=== PATIENT | male | born 1960 | race Caucasian/White ===

== ENCOUNTER 2024-05-06 19:43 | Inpatient (IN) | payer OTHER ==
[2024-05-06 21:14] VITALS: BMI 31.8
[2024-05-06] MEDS ORDERED: LOPERAMIDE HCL 2 MG CAPSULE PO PRN (21:20)
[2024-05-06] MEDS ORDERED: IBUPROFEN 400 MG TABLET (FP) PO PRN (21:20)
[2024-05-06] MEDS ORDERED: NALOXONE (NARCAN) HCL 4 MG/0.1 ML SPRAY NS PRN (21:20)
[2024-05-06] MEDS ORDERED: BENZOCAINE/MENTHOL (CHLORASEPTIC ) LOZENGE MM PRN (21:20)
[2024-05-06] MEDS ORDERED: POLYETHYLENE GLYCOL (HEALTHYLAX) 3350 17 GM PACKET PO PRN (21:20)
[2024-05-06] MEDS ORDERED: ACETAMINOPHEN 325 MG TABLET (FP) PO PRN (21:20)
[2024-05-06] MEDS ORDERED: MAGNESIUM HYDROX 2400MG/30ML ORAL SUSPENSION 30 ML CUP PO PRN (21:20)
[2024-05-06] MEDS ORDERED: NICOTINE POLACRILEX 2 MG GUM BUC PRN (21:20)
[2024-05-06] MEDS ORDERED: MAG HYDROX/AL HYDROX/SIMETH 30 ML UNIT-DOSE CUP PO PRN (21:20)
[2024-05-06] MEDS ORDERED: NICOTINE POLACRILEX 2 MG LOZENGE BC PRN (21:20)
[2024-05-06] MEDS ORDERED: P-EPHED 60MG/TRIPROLIDI 2.5MG TABLET PO PRN (21:20)
[2024-05-06] MEDS ORDERED: BISMUTH SUBSALICYLATE 524 MG/30 ML PO PRN (21:20)
[2024-05-06] MEDS ORDERED: ONDANSETRON *ODT* 4 MG TABLET SL PRN (21:20)
[2024-05-06] MEDS ORDERED: TETRAHYDROZOLINE HCL EYE DROPS OU PRN (21:22)
[2024-05-06] MEDS: METOPROLOL TARTRATE 25 MG TABLET (FP) PO ONE (22:00)
[2024-05-06] MEDS ORDERED: METOPROLOL TARTRATE 25 MG TABLET (FP) ONE (22:44)
[2024-05-06] MEDS ORDERED: MELATONIN 5 MG TABLETS ONE (22:44)
[2024-05-06] MEDS ORDERED: diazePAM 5 MG TABLET ONE (22:44)
[2024-05-06] MEDS: THIAMINE 100 MG TABLET PO SCH (22:52)
[2024-05-06] MEDS: MELATONIN 5 MG TABLETS PO SCH (22:52)
[2024-05-06] MEDS: diazePAM 5 MG TABLET PO SCH (22:52)
[2024-05-06] MEDS: ALBUTEROL SO4 2.5/IPRATROPIUM 0.5 INH SOL 3 ML VIAL.NEB. NEB SCH (23:33)
[2024-05-07] MEDS: BENZONATATE 200 MG CAPSULE PO PRN (05:28)
[2024-05-07] MEDS: PRENATAL VITAMINS W/ FOLIC ACID TABLET (FP) PO SCH (10:14)
[2024-05-07] MEDS: METOPROLOL TARTRATE 25 MG TABLET (FP) PO SCH (10:15)
[2024-05-07 11:48] LABS: POTASSIUM 4.5 mmol/L (3.5-5.1)
[2024-05-07 12:06] LABS: CALCIUM 9.2 mg/dL (8.5-10.1)
[2024-05-07 12:07] LABS: ALBUMIN 3.3 g/dl (3.4-5.0); BLOOD UREA NITROGEN 7.9 mg/dL (7-18)
[2024-05-07 12:10] LABS: CREATININE 0.9 mg/dL (0.55-1.3)
[2024-05-07 12:13] LABS: BILIRUBIN,TOTAL 0.9 mg/dL (0.2-1)
[2024-05-07 13:37] LABS: HEMATOCRIT 37.2 % (40.1-51.0); HEMOGLOBIN 12.8 g/dL (13.7-17.5); MCHC 34.4 g/dl (32.3-36.5); MEAN CELL VOLUME 91.4 fl (79.0-92.2); MEAN PLT VOLUME 11.1 fl (9.4-12.4); PLATELET COUNT 96 x10^3/uL (163-337); RDW 14.1 % (12.2-16.4)
[2024-05-07] MEDS: guaiFENesin 600 MG TABLET.ER (FP) PO PRN (16:35)
[2024-05-07] MEDS: IBUPROFEN 600 MG TABLET (FP) PO PRN (22:49)
[2024-05-08] MEDS: diazePAM 5 MG TABLET PO SCH (05:49)
[2024-05-08] MEDS: diazePAM 5 MG TABLET PO PRN (09:31)
[2024-05-09] MEDS: diazePAM 5 MG TABLET PO SCH (05:49)
[2024-05-09] MEDS ORDERED: BENZONATATE 200 MG CAPSULE PO PRN (10:34)
[2024-05-09] MEDS: guaiFENesin 600 MG TABLET.ER (FP) PO SCH (11:03)
[2024-05-09] MEDS: FLUTICASONE/UMECLIDIN/VILANTER(200-62.5-25 TRELEGY ELLIPTA) INAHLER IH SCH (12:09)
[2024-05-09] MEDS: ALBUTEROL SO4 HFA INHALER IH PRN (12:09)
[2024-05-09] MEDS: guaiFENesin 200 MG/10 ML 10 ML UNIT-DOSE CUPS PO PRN (22:32)
[2024-05-10] MEDS: diazePAM 5 MG TABLET PO ONE (05:30)
[2024-05-10] MEDS: hydrOXYzine PAMOATE 25 MG CAPSULE (FP) PO PRN (10:20)
[2024-05-10 11:24] VITALS: RESP 17
[2024-05-10 13:30] VITALS: BP 127/92; PULSE 60; TEMP 96.9
== END 2024-05-10 14:12 | disposition other institution (70) | DRG 897 ==
LOC: YASAS 19:43 → Y3N 22:27
PROVIDERS: ADMIT Allergy & Immunology; ATTEND Allergy & Immunology
PROC: HZ2ZZZZ Detoxification Services for Substance Abuse Treatment (ICD-10-PCS; principal; 2024-05-06)
DX: F10.230 Alcohol dependence with withdrawal, uncomplicated (principal); Z59.00 Homelessness unspecified; F14.10 Cocaine abuse, uncomplicated; F17.210 Nicotine dependence, cigarettes, uncomplicated; I10 Essential (primary) hypertension; J44.9 Chronic obstructive pulmonary disease, unspecified
CPT/HCPCS: 0241U-QW; 36415; 71045-TC-FY; 80053; 85027; 86780; 87811; 93005; 93010; 94640

== ENCOUNTER 2024-05-10 14:16 | Inpatient (IN) | payer OTHER ==
[2024-05-10] MEDS ORDERED: ACETAMINOPHEN 325 MG TABLET (FP) PO PRN (16:39)
[2024-05-10] MEDS ORDERED: LOPERAMIDE HCL 2 MG CAPSULE PO PRN (16:39)
[2024-05-10] MEDS ORDERED: NALOXONE HCL 0.4 MG/ML VIAL IVPUSH PRN (16:39)
[2024-05-10] MEDS ORDERED: NICOTINE POLACRILEX 2 MG GUM BUC PRN (16:39)
[2024-05-10] MEDS ORDERED: BENZOCAINE/MENTHOL (CHLORASEPTIC ) LOZENGE MM PRN (16:39)
[2024-05-10] MEDS ORDERED: IBUPROFEN 400 MG TABLET (FP) PO PRN (16:39)
[2024-05-10] MEDS ORDERED: BENZONATATE 200 MG CAPSULE PO PRN (16:39)
[2024-05-10] MEDS ORDERED: NALOXONE (NARCAN) HCL 4 MG/0.1 ML SPRAY NS PRN (16:39)
[2024-05-10] MEDS ORDERED: POLYETHYLENE GLYCOL (HEALTHYLAX) 3350 17 GM PACKET PO PRN (16:39)
[2024-05-10] MEDS ORDERED: MAGNESIUM HYDROX 2400MG/30ML ORAL SUSPENSION 30 ML CUP PO PRN (16:39)
[2024-05-10] MEDS: THIAMINE 100 MG TABLET PO SCH (21:27)
[2024-05-10] MEDS: MELATONIN 5 MG TABLETS PO SCH (21:27)
[2024-05-10] MEDS: METOPROLOL TARTRATE 25 MG TABLET (FP) PO SCH (21:27)
[2024-05-10] MEDS: guaiFENesin 600 MG TABLET.ER (FP) PO PRN (21:29)
[2024-05-10] MEDS: ALBUTEROL SO4 HFA INHALER IH PRN (21:29)
[2024-05-11] MEDS: NICOTINE POLACRILEX 2 MG LOZENGE BC PRN (05:34)
[2024-05-11] MEDS: PRENATAL VITAMINS W/ FOLIC ACID TABLET (FP) PO SCH (09:28)
[2024-05-11] MEDS: FLUTICASONE/UMECLIDIN/VILANTER(200-62.5-25 TRELEGY ELLIPTA) INAHLER IH SCH (09:28)
[2024-05-12] MEDS: IBUPROFEN 600 MG TABLET (FP) PO PRN (21:33)
[2024-05-14] MEDS ORDERED: ALBUTEROL SO4 2.5/IPRATROPIUM 0.5 INH SOL 3 ML VIAL.NEB. NEB PRN (12:07)
[2024-05-14] MEDS: guaiFENesin 600 MG TABLET.ER (FP) PO PRN (12:44)
[2024-05-14] MEDS: BACLOFEN 10 MG TABLET (FP) PO SCH (12:44)
[2024-05-14] MEDS: MAG HYDROX/AL HYDROX/SIMETH 30 ML UNIT-DOSE CUP PO PRN (12:46)
[2024-05-15] MEDS: SUVOREXANT 5 MG TABLET PO PRN (21:43)
[2024-05-18] MEDS: SUVOREXANT 5 MG TABLET PO PRN (21:33)
[2024-05-20 06:44] VITALS: BP 138/74; PULSE 65; RESP 16; TEMP 97.5
== END 2024-05-20 14:00 | disposition home or self-care (01) | DRG 895 ==
LOC: YASAS 14:16 → Y3NR 14:19 → Y5N 05-12 12:04
PROVIDERS: ADMIT Neuromusculoskeletal Medicine & OMM; ATTEND Neuromusculoskeletal Medicine & OMM
PROC: HZ42ZZZ Group Counseling for Substance Abuse Treatment, Cognitive-Behavioral (ICD-10-PCS; principal; 2024-05-10)
DX: F10.20 Alcohol dependence, uncomplicated (principal); F14.10 Cocaine abuse, uncomplicated; F17.210 Nicotine dependence, cigarettes, uncomplicated; H40.9 Unspecified glaucoma; I10 Essential (primary) hypertension; J44.9 Chronic obstructive pulmonary disease, unspecified
CPT/HCPCS: 0241U-QW; J0475